=== PATIENT | female | born 1970 | race Caucasian/White ===

== ENCOUNTER → 2021-11-07 | Outpatient (CLI) | payer BC ==
--- NOTE | 2021-11-07 16:30 | RAD ---
CT MAXILLOFACIAL WITHOUT CONTRAST History: Cluster headache, deviated septum. Comparison: None. Technique: CT of the face without contrast. Findings: There is a medial left maxillary wall mucus retention cyst or polyp. Otherwise no significant mucoper iosteal thickening or fluid levels in the right maxillary, bilateral sphenoid, bilateral ethmoid and bilateral frontal sinuses. The left maxillary infundibulum is partially obstructed, however there is a large patent accessory medial maxillary sinus ostium. The right OMC, bilateral frontal nasal ducts and sphenoethmoidal recesses are patent. There is rightward nasal septal deviation. No mass or polyposis of the nasal cavity and nasopharynx. The fossa of Rosenmuller are patent. The mastoid air cells are well aerated. No acute osseous abnormality. No changes of the sinus subramanian to suggest chronic sinusitis. Visualized orbits are unremarkable. Impression: 1. Mucous retention cyst or polyp of the left medial maxillary wall which partially obstructs the le ft maxillary infundibulum however there is a patent accessory ostium posteriorly. 2. Mild rightward nasal septal deviation. ------ Exposure: One or more of the following individualized dose reduction techniques were utilized for thi s examination: 1. Automated exposure control 2. Adjustment of the mA and/or kV according to patient size 3. Use of iterative reconstruction technique. Electronically signed by: Jesus Mattson MD (11/07/2021 4:28 PM) [facility]
== END ==
LOC: CT 15:46
PROVIDERS: ATTEND Otolaryngology
DX: J34.2 Deviated nasal septum (principal); J34.1 Cyst and mucocele of nose and nasal sinus; G44.021 Chronic cluster headache, intractable
CPT/HCPCS: 70486

== ENCOUNTER → 2022-01-31 | Outpatient (CLI) | payer BC | LOC: LAB 08:05 | PROVIDERS: ATTEND Otolaryngology | DX: Z01.812 Encounter for preprocedural laboratory examination (principal); Z20.822 Contact with and (suspected) exposure to COVID-19; Z98.890 Other specified postprocedural states | CPT/HCPCS: U0003 ==

== ENCOUNTER → 2022-02-04 | Day surgery (SDC) | payer BC ==
[~2022-02-04] MED LIST: ACETAMINOPHEN 500 MG TABLET PO ONE; ATROPINE SULFATE 1 MG VIAL ONE; DEXAMETHASONE SOD PHOS 20 MG/5 ML VIAL. ONE; GELATIN SPONGE SIZE 12-7MM SPONGE. ONE; GELATIN SPONGE SIZE 12-7MM SPONGE. TP ONE; GLYCOPYRROLATE 1 MG/5 ML VIAL. ONE; IPRATRPIUM/ALBUTEROL 0.5/2.5MG 3 ML NEBU. NEB PRN; IV RINGERS SOLUTION,LACTATED 1,000 ML IV SCH; KETOROLAC 30 MG/ML VIAL. ONE; LIDOCAINE 1%/EPI 1:100,000 20 ML VIAL. IJ ONE; LIDOCAINE 1%/EPI 1:100,000 20 ML VIAL. ONE; LIDOCAINE 2% PF 5 ML VIAL. ONE; MIDAZOLAM HCL PF 2 MG/2 ML VIAL. IV ONE; MIDAZOLAM HCL PF 2 MG/2 ML VIAL. ONE; NEOSTIGMINE 10 MG/10 ML VIAL. ONE; ONDANSETRON PF 4 MG/2 ML VIAL. IV PRN; ONDANSETRON PF 4 MG/2 ML VIAL. ONE; OXYMETAZOLINE 0.05% NASAL SPRAY 30ML BOTTLE. NS ONE; PHENYLEPHRINE 10 MG/ML VIAL. IV ONE; PROPOFOL 10,000 MCG/ML (20ML) VIAL IV ONE; ROCURONIUM 50 MG/5 ML VIAL. ONE; SEVOFLURANE 61 TO 120 MINUTES. IH ONE; SUCCINYLCHOLINE 200 MG/10 ML VIAL. ONE
--- NOTE | 2022-02-04 11:37 | OP ---
DATE OF SURGERY: 02/04/2022 PREOPERATIVE DIAGNOSES: Deviated nasal septum with inferior turbinate hypertrophy, and left middle meatal obstruction with recurrent left maxillary sinusitis. POSTOPERATIVE DIAGNOSES: Deviated nasal septum with inferior turbinate hypertrophy, and left middle meatal obstruction with recurrent left maxillary sinusitis. PROCEDURES PERFORMED: Nasal septoplasty, reduction of inferior nasal turbinates using radiofrequency and endoscopic exploration of the left middle meatus and maxillary sinus. INDICATIONS FOR PROCEDURE: Chronic cephalgia, nasal obstruction, recurrent symptoms suggestive of sinusitis. ANESTHESIA: General anesthetic. ESTIMATED BLOOD LOSS: Approximately 15-20 mL. SPECIMENS: No specimen for pathologic evaluation was retrieved. DESCRIPTION OF PROCEDURE: The patient was brought to the operating room and placed on the operating room table in supine position. She was placed under general anesthetic and appropriate professional adjustment was made during the induction to make the patient comfortable and monitor during the procedure. The patient's face was cleaned. Her nose was cleaned with Betadine and the nasopharynx was irrigated and suctioned. Then, 1% lidocaine with epinephrine was injected into the nasal septum for dissection facilitation and also for bleeding control. Saline was injected into the inferior turbinates. Then, the face was prepped and draped after sterile fashion. The inferior turbinates were treated by placing a radiofrequency probe from a Coblation unit in the inferior portion of the inferior nasal turbinate. In the left side of the nose, the posterior mucosal membrane of the inferior turbinate was swollen and enlarged. It was treated and contraction and reduction was noted. In the right side of the nose, most of the soft tissue prominence was noted anteriorly and inferiorly along the inferior turbinate. It was that site, which was treated with radiofrequency reduction. Both nasal inferior turbinates were then outfractured. A 30-degree endoscope was then inserted into the nose and inspection carried out up to the middle meatus and the region of the maxillary sinus ostium. It was discovered that a large thickened mucus collection was noted completely obstructing the maxillary meatal structure. Placement of a suction gently adjacent to it extracted the mucus quickly and then the middle meatus was clear. Inspection with the endoscope into the maxillary sinus ostium revealed no other additional abnormalities such as a mucocele or infection, but noted was the presence of thickening and edema and swelling of the wall of the maxillary sinus. Then, external inspection in the inferior meatal area could not identify an additional accessory opening into the maxillary sinus. The nose was then irrigated and suctioned clear. Septoplasty was then accomplished. By making a curvilinear incision along the mucocutaneous border, gently dissecting underneath the mucoperichondrium and periosteum, identifying the nasal septum, which was very thin and easily manipulatable, the prominent spur that was in the left side of the nose along the floor which contacted the inferior nasal turbinate was skeletonized and then removed with Erika forceps. The portion of the nasal septum that was deviated into the left side was then gently manipulated. It was scored. A small portion of it was removed. It was concludedly placed in a midline position. After this was completed, the nose was irrigated and suctioned. No active bleeding was occurring and the mucosa was reapproximated with suture after a quilting pattern through the septum to close the incision site and secure the mucosa over the surface of the septum. Procedure was completed. The patient was recovered from her anesthesia. Gelfoam was placed in the nose for stability and maintenance and the patient was taken to the recovery room in stable condition. MARIAH DR: Jigna TID: [id number]
[2022-02-04 11:45] VITALS: BP 119/81
--- NOTE | 2022-02-04 19:08 | OP ---
DATE OF SURGERY: 02/04/2022 PREOPERATIVE DIAGNOSES: Nasal obstruction with a deviated nasal septum and inferior turbinate hypertrophy. POSTOPERATIVE DIAGNOSES: Nasal obstruction with a deviated nasal septum and inferior turbinate hypertrophy. INDICATIONS FOR THIS PROCEDURE: Nasal obstruction and a history of cephalgia. ANESTHESIA: General anesthetic. BLOOD LOSS: Less than 20 mL. SPECIMEN: No pathology tissue was submitted for evaluation. Dictation Ends Here BEKA DR: Jigna TID: [id number]
== END | disposition home or self-care (01) ==
LOC: SURG 07:46 → MERGE 08:30
PROVIDERS: ATTEND Otolaryngology
DX: J34.2 Deviated nasal septum (principal); J34.3 Hypertrophy of nasal turbinates; J32.0 Chronic maxillary sinusitis; G44.021 Chronic cluster headache, intractable; J34.89 Other specified disorders of nose and nasal sinuses; F41.9 Anxiety disorder, unspecified; F32.9 Major depressive disorder, single episode, unspecified; K21.9 Gastro-esophageal reflux disease without esophagitis; Z98.890 Other specified postprocedural states; Z79.899 Other long term (current) drug therapy
CPT/HCPCS: 30520; 30801; 31233; A4657; J0171; J0330; J0461; J0696; J1100; J1885; J2001; J2250; J2405; J2704; J2710; J3010; J3490; J7120